=== PATIENT | male | born 1985 | race African-American/Black ===

== ENCOUNTER 2016-08-16 12:11 | Emergency (ER) | payer OTHER ==
[2016-08-16] MEDS ORDERED: KETOROLAC 30 MG/ML VIAL (J1885) As Ordered ONE (14:43)
[2016-08-16] MEDS ORDERED: CLINDAMYCIN 600 MG/50 ML PREMIX BAG As Ordered ONE (14:43)
[2016-08-16 15:12] LABS: ANION GAP 8 MEQ/L (8-16); BLOOD UREA NITROGEN 13 MG/DL (7-18); CALCIUM LEVEL 9.2 MG/DL (8.5-10.1); CARBON DIOXIDE LEVEL 30 MEQ/L (21-32); CHLORIDE LEVEL 104 MEQ/L (98-107); GLOMERULAR FILTRATION RATE > 60.0 (>60); GLUCOSE, FASTING 83 MG/DL (70-105); POTASSIUM SERUM 4.1 MEQ/L (3.5-5.1); SODIUM LEVEL 142 MEQ/L (136-145)
[2016-08-16] MEDS ORDERED: ISOVUE-370 76% 100ML VIAL (Q9967) As Ordered ONE ×2 (15:34→15:46)
[2016-08-16 15:36] LABS: ERYTHROCYTE SEDIMENTATION RATE 32 mm/hr (0-15)
[2016-08-16 15:37] LABS: BASO % 0.5 % (0.0-1.0); EOS # 0.1 K/mm3 (0.0-0.50); EOS % 1.2 % (0.0-3.0); LARGE UNSTAINED CELL # 0.2 K/mm3 (0.0-0.4); LARGE UNSTAINED CELL % 1.8 % (0.0-4.0); LYMPH # 1.4 K/mm3 (1.5-4.5); LYMPH % 17.5 % (24.0-44.0); MEAN CORPUSCULAR HEMOGLOBIN 34.7 pg (27.0-33.0); MEAN CORPUSCULAR HGB CONC 35.7 g/dl (32.0-36.5); MONO # 0.4 K/mm3 (0.0-0.8); MONO % 4.5 % (0.0-5.0); NEUTROPHILS % 74.5 % (36.0-66.0); PLATELET COUNT, AUTOMATED 232 k/mm3 (150-450); RED CELL DISTRIBUTION WIDTH 11.5 % (11.5-14.5)
--- NOTE | 2016-08-16 16:51 | REP ---
CT NECK WITH CONTRAST: HISTORY: Left facial swelling. CONTRAST: Isovue-370 75 mL. There is prominence of the adenoidal tissue with minimal mass effect on the nasopharynx. There is minimal enlargement of the tonsils. There is extension of the tonsillar enlargement into the lateral card of the oropharynx. There is minimal mass effect on the oropharynx. The hypopharynx, larynx, and subglottic trachea are normal in appearance. The salivary and thyroid glands are normal. An enlarged lymph node 1.7 cm in width is present in the left internal jugular chain at the level of the darcy and hypopharynx. Small lymph nodes less than 1 cm in size are present in the right internal jugular chain, posterior triangles, submandibular and submental areas. The lung apices are clear. The visualized sinuses are clear. IMPRESSION: There is minimal enlargement of the tonsils with minimal mass effect on the oropharynx. An enlarged lymph node 1.7 cm in width is present in the left internal jugular chain at the level or the darcy and hypopharynx. This is consistent with tonsillitis and lymphadenitis. Signed by Silvio Edwards MD 08/16/2016 04:58 P
[2016-08-16] MEDS ORDERED: CLINDAMYCIN 150 MG CAP As Ordered ONE (16:54)
--- NOTE | 2016-08-16 17:03 | EDDOCDS ---
Physician Documentation [facility] Name: Pablo Friedman Age: 30 yrs Sex: Male : 1985 Arrival Date: 08/16/2016 Time: 12:11 Bed I5 / M5 [facility] Disposition: 08/16/16 16:50 Discharged to Home/Self Care. Impression: Acute pharyngitis, Streptococcal pharyngitis. - Condition is Stable. - Discharge Instructions: Pharyngitis, Strep Throat. - Prescriptions for Clindamycin HCl 300 mg Oral Capsule - take 1 capsule by ORAL route every 6 hours; 40 capsule. - Medication Reconciliation, Local Pharmacy Hours form. - [facility]; When: Call to arrange an appointment; Reason: Recheck today's complaints, Continuance of care. - Problem is new. - Symptoms are unchanged. Historical: - Allergies: PENICILLINS; SULFA (SULFONAMIDES); - Home Meds: 1. none - PMHx: Asthma; - PSHx: Appendectomy; - Social history: Smoking status: Patient states was never smoker of tobacco. No barriers to communication noted, The patient speaks fluent Slovak, Speaks appropriately for age. - Family history: Not pertinent. - : The pt / caregiver states he / she is not on anticoagulants. Home medication list is obtained from the patient. - Exposure Risk Screening:: None identified. Vital Signs: 08/16 12:13 BP 166 / 86; Pulse 91; Resp 16; Temp 98.4(O); Pulse Ox 100% ; Weight 104.33 kg / 230.01 cmb lbs; Height 5 ft. 9 in. (175.26 cm); Pain 9/10; 15:39 Resp 18; Pain 4/10; ms18 16:53 BP 149 / 82; Pulse 72; Resp 18; Temp 97.6; Pulse Ox 99% ; Pain 4/10; jam1 12:13 Body Mass Index 33.96 (104.33 kg, 175.26 cm) cmb MDM: 14:13 Strep Screen, Nursing ordered. dt4 14:13 IV Saline Lock ordered. dt4 14:13 Clindamycin 600 mg IVPB once over 30 mins; dilute in 50mL of NS or D5W ordered. dt4 14:13 ketorolac 30 mg IVP once ordered. dt4 14:14 CBC with Diff Ordered. EDMS 14:14 Basic Metabolic Profile Ordered. EDMS 14:14 Sed Rate Ordered. EDMS 14:14 CRP Ordered. EDMS 14:15 CT Neck With Contrast Ordered. EDMS 14:54 ketorolac 30 mg IVP once ordered. srm 16:01 Financial registration complete. zo 16:07 [facility] Payment Agreement was scanned into [email or web address] and attached to record. zo 16:09 CBC with Diff Reviewed. mo1 16:10 Sed Rate Reviewed. mo1 16:10 CRP Reviewed. mo1 16:10 Basic Metabolic Profile Reviewed. mo1 16:49 Clindamycin 300 mg PO once ordered. mo1 Administered Medications: 14:53 Drug: ketorolac 30 mg [ketorolac 30 mg/mL (1 mL) injection solution (1 mL)] Route: IVP; srm Site: left antecubital; 15:39 Follow up: Resp 18 bpm; Pain 4/10 Adult; Response: No Adverse Reaction; Pain is ms18 decreased 14:55 Drug: Clindamycin 600 mg [clindamycin 600 mg/50 mL in 5 % dextrose intravenous srm piggyback] Route: IVPB; Infused Over: 30 mins; Site: left antecubital; 15:39 Follow up: Response: No Adverse Reaction; Pain is decreased; IV Status: Completed ms18 infusion 16:54 Not Given (Duplicate Order): Clindamycin 300 mg PO once mo1 Signatures: Dispatcher [employer] Christine Solis RN RN srm Samantha Hopson Michael, PA PA mo1 Marisel Cody RN RN ead Tschudi, Diane PAKiara PA-C dt4 Rosalina Wesley RN RN ms18 The chart was reviewed and I authenticate all verbal orders and agree with the evaluation and treatment provided.Attachments: 16:07 [facility] Payment Agreement zo MTDD
--- NOTE | 2016-08-16 17:03 | EDDOCDS ---
Nurse's Notes [facility] Name: Pablo Friedman Age: 30 yrs Sex: Male : 1985 Arrival Date: 08/16/2016 Time: 12:11 Bed I5 / M5 Private MD: [facility] KOCH Diagnosis: Acute pharyngitis;Streptococcal pharyngitis Presentation: 08/16 12:16 Presenting complaint: Patient states: Pt states he was seen at [facility] this morning for left jaw swelling, advised to come to ER. Pt reports onset of swelling was Monday. Pt reports pain when swallowing. Risk factors: Stridor is not present. Drooling is not present. Shortness of breath is not present. Cellulitis is not present. Adult Sepsis Screening: The patient does not have new or worsening altered mentation. Patient's respiratory rate is less than 22. Systolic blood pressure is greater than 100. Patient has a qSOFA score of 0- Negative Sepsis Screen. Mental Health Triage Level:. Suicide/Homicide risk assessment- the patient denies having any suicidal and/or homicidal ideations and does not present with any other emotional, behavioral or mental health complaints. 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 Transition of care: Patient was received from [facility]. 12:16 Acuity: RUPESH Level 3 ead 12:16 Method Of Arrival: Walkin/Carried/Asstd ead Triage Assessment: 12:18 General: Appears in no apparent distress, Behavior is appropriate for age, cooperative, ead pleasant. Pain: Location: left jaw Pain currently is 6 out of 10 on a pain scale. Neurological: No deficits noted. EENT: swelling to left jaw. Reports pain when swallowing. Derm: Skin is dry, Skin is normal. 12:19 Pt Declines HIV testing. ead Historical: - Allergies: PENICILLINS; SULFA (SULFONAMIDES); - Home Meds: 1. none - PMHx: Asthma; - PSHx: Appendectomy; - Social history: Smoking status: Patient states was never smoker of tobacco. No barriers to communication noted, The patient speaks fluent Cymro, Speaks appropriately for age. - Family history: Not pertinent. - : The pt / caregiver states he / she is not on anticoagulants. Home medication list is obtained from the patient. - Exposure Risk Screening:: None identified. Screenin:40 Screening information is obtained from the patient. Fall risk: No risks identified. ms18 Assistance ADL's: requires no assistance with activities of daily living. Abuse/DV Screen: The patient / caregiver reports he/she is: not in a situation that causes fear, pain or injury. Nutritional screening: No deficits noted. Advance Directives: There is no living will. home support is adequate. Assessment: 14:41 General: Appears in no apparent distress, Behavior is appropriate for age, cooperative. srm Neurological: No deficits noted. Respiratory: Airway is patent Respiratory effort is even, unlabored. GI: No deficits noted. Derm: swelling left jaw. 15:40 General: Appears in no apparent distress, comfortable, Behavior is appropriate for age, ms18 cooperative, pleasant. Pain: Location: mouth Pain currently is 4 out of 10 on a pain scale. Neurological: Level of Consciousness is awake, alert, obeys commands, Oriented to person, place, time. Respiratory: Airway is patent Respiratory effort is even, unlabored. Derm: Skin is normal. 16:59 General: Appears in no apparent distress, comfortable, Behavior is appropriate for age, ms18 cooperative, pleasant. Pain: Pain currently is 4 out of 10 on a pain scale. Neurological: No deficits noted. Respiratory: Airway is patent Respiratory effort is even, unlabored. Derm: Skin is pink, warm & dry. normal. 17:01 EENT: Throat is clear. ms18 Vital Signs: 12:13 BP 166 / 86; Pulse 91; Resp 16; Temp 98.4(O); Pulse Ox 100% ; Weight 104.33 kg; Height cmb 5 ft. 9 in. (175.26 cm); Pain 9/10; 15:39 Resp 18; Pain 4/10; ms18 16:53 BP 149 / 82; Pulse 72; Resp 18; Temp 97.6; Pulse Ox 99% ; Pain 4/10; jam1 12:13 Body Mass Index 33.96 (104.33 kg, 175.26 cm) cmb Vitals: 12:13 Log In Time: August 16, 2016 at 12:11. cmb 14:41 Strep Screen is obtained and tested: Positive. [facility] ED Course: 12:12 Patient visited by Carole Israel. cmb 12:12 [facility]. cmb 12:12 Patient moved to Waiting cmb 12:13 Patient moved to Pre RCE cmb 12:17 Triage Initiated ead 13:13 Patient moved to Triage 1 kr3 13:54 Lucinda Manning PA-C is PHCP. dt4 13:54 Manuela Stapleton MD is Attending Physician. dt4 13:54 Patient visited by Lucinda Manning PA-C. dt4 14:12 Patient moved to I5 / M5 mdr 14:41 CRP Sent. srm 14:41 Sed Rate Sent. srm 14:41 Basic Metabolic Profile Sent. srm 14:41 CBC with Diff Sent. srm 14:42 The patient / caregiver is instructed regarding the plan of care and ED course. Patient srm has correct armband on for positive identification. Placed in gown. Bed in low position. Call light in reach. 14:42 Inserted saline lock: 20 gauge in left antecubital area and blood collected. srm 14:55 Patient visited by Christine Ndiaye RN. srm 15:39 Patient visited by Rosalina Wesley RN. ms18 15:48 Patient has correct armband on for positive identification. Bed in low position. Call jam1 light in reach. Side rails up X 1. Door closed. 16:06 Patient name changed from Pablo\S\\S\Foward\S\ to Pablo\S\ \S\Foward. EDMS 16:07 PHCP role handed off by Lucinda Manning PA-C mo1 16:07 Jerardo Dixon PA is PHCP. mo1 16:07 [facility] Payment Agreement was scanned into [employer] and attached to record. zo 16:44 Patient visited by Rosalina Wesley RN. ms18 16:50 [facility]. mo1 16:59 Patient visited by Rosalina Wesley RN. ms18 16:59 Property :Personal belongings accompany Pt. ms18 16:59 Discontinued IV lock intact, bleeding controlled, pressure dressing applied, No ms18 redness/swelling at site. No procedures done that require assistance. Administered Medications: 14:53 Drug: ketorolac 30 mg [ketorolac 30 mg/mL (1 mL) injection solution (1 mL)] Route: IVP; srm Site: left antecubital; 15:39 Follow up: Resp 18 bpm; Pain 4/10 Adult; Response: No Adverse Reaction; Pain is ms18 decreased 14:55 Drug: Clindamycin 600 mg [clindamycin 600 mg/50 mL in 5 % dextrose intravenous srm piggyback] Route: IVPB; Infused Over: 30 mins; Site: left antecubital; 15:39 Follow up: Response: No Adverse Reaction; Pain is decreased; IV Status: Completed ms18 infusion 16:54 Not Given (Duplicate Order): Clindamycin 300 mg PO once mo1 Order Results: Lab Order: CBC with Diff; SPEC'M 08/16/16 14:37 Test: WHITE BLOOD COUNT; Value: 8.0; Range: 4.0-10.0; Units: K/mm3; Status: F Test: RED BLOOD COUNT; Value: 4.04; Range: 4.30-6.10; Abnormal: Below low normal; Units: M/mm3; Status: F Test: HEMOGLOBIN; Value: 14.0; Range: 14.0-18.0; Units: g/dl; Status: F Test: HEMATOCRIT; Value: 39.2; Range: 42.0-52.0; Abnormal: Below low normal; Units: %; Status: F Test: MEAN CORPUSCULAR VOLUME; Value: 97.0; Range: 80.0-96.0; Abnormal: Above high normal; Units: fl; Status: F Test: MEAN CORPUSCULAR HEMOGLOBIN; Value: 34.7; Range: 27.0-33.0; Abnormal: Above high normal; Units: pg; Status: F Test: MEAN CORPUSCULAR HGB CONC; Value: 35.7; Range: 32.0-36.5; Units: g/dl; Status: F Test: RED CELL DISTRIBUTION WIDTH; Value: 11.5; Range: 11.5-14.5; Units: %; Status: F Test: PLATELET COUNT, AUTOMATED; Value: 232; Range: 150-450; Units: k/mm3; Status: F Test: NEUTROPHILS %; Value: 74.5; Range: 36.0-66.0; Abnormal: Above high normal; Units: %; Status: F Test: LYMPH %; Value: 17.5; Range: 24.0-44.0; Abnormal: Below low normal; Units: %; Status: F Test: MONO %; Value: 4.5; Range: 0.0-5.0; Units: %; Status: F Test: EOS %; Value: 1.2; Range: 0.0-3.0; Units: %; Status: F Test: BASO %; Value: 0.5; Range: 0.0-1.0; Units: %; Status: F Test: LARGE UNSTAINED CELL %; Value: 1.8; Range: 0.0-4.0; Units: %; Status: F Test: NEUTROPHILS #; Value: 6.0; Range: 1.8-7.7; Units: K/mm3; Status: F Test: LYMPH #; Value: 1.4; Range: 1.5-4.5; Abnormal: Below low normal; Units: K/mm3; Status: F Test: MONO #; Value: 0.4; Range: 0.0-0.8; Units: K/mm3; Status: F Test: EOS #; Value: 0.1; Range: 0.0-0.50; Units: K/mm3; Status: F Test: BASO #; Value: 0.0; Range: 0.0-0.2; Units: K/mm3; Status: F Test: LARGE UNSTAINED CELL #; Value: 0.2; Range: 0.0-0.4; Units: K/mm3; Status: F Lab Order: Basic Metabolic Profile; SPEC'M 08/16/16 14:37 Test: GLUCOSE, FASTING; Value: 83; Range: 70-105; Units: MG/DL; Status: F Test: BLOOD UREA NITROGEN; Value: 13; Range: 7-18; Units: MG/DL; Status: F Test: CREATININE FOR GFR; Value: 1.20; Range: 0.70-1.30; Units: MG/DL; Status: F Test: GLOMERULAR FILTRATION RATE; Value: > 60.0; Range: >60; Status: F Test: SODIUM LEVEL; Value: 142; Range: 136-145; Units: MEQ/L; Status: F Test: POTASSIUM SERUM; Value: 4.1; Range: 3.5-5.1; Units: MEQ/L; Status: F Test: CHLORIDE LEVEL; Value: 104; Range: 98-107; Units: MEQ/L; Status: F Test: CARBON DIOXIDE LEVEL; Value: 30; Range: 21-32; Units: MEQ/L; Status: F Test: ANION GAP; Value: 8; Range: 8-16; Units: MEQ/L; Status: F Test: CALCIUM LEVEL; Value: 9.2; Range: 8.5-10.1; Units: MG/DL; Status: F Test Note: ; Units are mL/min/1.73 m2 Chronic Kidney Disease Staging per NKF: Stage I & II GFR >=60 Normal to Mildly Decreased Stage III GFR 30-59 Moderately Decreased Stage IV GFR 15-29 Severely Decreased Stage V GFR <15 Very Little GFR Left ESRD GFR <15 on CREDIT RISK MANAGER Lab Order: Sed Rate; SPEC'M 08/16/16 14:37 Test: ERYTHROCYTE SEDIMENTATION RATE; Value: 32; Range: 0-15; Abnormal: Above high normal; Units: mm/hr; Status: F Lab Order: CRP; SPEC'M 08/16/16 14:37 Test: C REACTIVE PROTEIN QUANTITATIV; Value: 3.30; Range: 0.00-0.30; Abnormal: Above high normal; Units: MG/DL; Status: F Outcome: 16:50 Discharge ordered by Provider. mo1 16:59 Discharge Assessment: Patient awake, alert and oriented x 3. No cognitive and/or ms18 functional deficits noted. Patient verbalized understanding of disposition instructions. patient administered narcotics - no. The following High Risk Discharge criteria are identified: None. Discharged to home ambulatory. Condition: good Condition: stable Condition: improved. Discharge instructions given to patient, Instructed on discharge instructions, follow up and referral plans. medication usage, Demonstrated understanding of instructions, medications, Patient was not receptive of discharge instructions. Prescriptions given X 1. CT Study completed. 17:02 Patient left the ED. ms18 Signatures: Dispatcher [employer] EDMS Christine Ndiaye RN Yohana Vera, CLINICAL MASSAGE THERAPIST CLINICAL MASSAGE THERAPIST jam1 Leonor Marr RN RN kr3 Samantha Hopson [place] cmb O'Hagan, Michael, PA PA mo1 Marisel Cody RN RN ead Tschudi, Diane PA-C PA-C dt4 Rosalina Wesley RN RN ms18 Devin, Asad, CLINICAL MASSAGE THERAPIST CLINICAL MASSAGE THERAPIST mdr Corrections: (The following items were deleted from the chart) 14:54 14:54 ketorolac 30 mg IVP in left antecubital srm srm 17:01 16:59 Pain: Denies pain. ms18 ms18 MTDD
--- NOTE | 2016-08-18 18:03 | EDDOCDS ---
Physician Documentation [facility] Name: Pablo Friedman Age: 30 yrs Sex: Male : 1985 Arrival Date: 08/16/2016 Time: 12:11 Bed I5 / M5 [facility] Disposition: 08/16/16 16:50 Discharged to Home/Self Care. Impression: Acute pharyngitis, Streptococcal pharyngitis. - Condition is Stable. - Discharge Instructions: Pharyngitis, Strep Throat. - Prescriptions for Clindamycin HCl 300 mg Oral Capsule - take 1 capsule by ORAL route every 6 hours; 40 capsule. - Medication Reconciliation, Local Pharmacy Hours form. - [facility]; When: Call to arrange an appointment; Reason: Recheck today's complaints, Continuance of care. - Problem is new. - Symptoms are unchanged. Historical: - Allergies: PENICILLINS; SULFA (SULFONAMIDES); - Home Meds: 1. none - PMHx: Asthma; - PSHx: Appendectomy; - Social history: Smoking status: Patient states was never smoker of tobacco. No barriers to communication noted, The patient speaks fluent Indonesian, Speaks appropriately for age. - Family history: Not pertinent. - : The pt / caregiver states he / she is not on anticoagulants. Home medication list is obtained from the patient. - Exposure Risk Screening:: None identified. Vital Signs: 08/16 12:13 BP 166 / 86; Pulse 91; Resp 16; Temp 98.4(O); Pulse Ox 100% ; Weight 104.33 kg / 230.01 cmb lbs; Height 5 ft. 9 in. (175.26 cm); Pain 9/10; 15:39 Resp 18; Pain 4/10; ms18 16:53 BP 149 / 82; Pulse 72; Resp 18; Temp 97.6; Pulse Ox 99% ; Pain 4/10; jam1 12:13 Body Mass Index 33.96 (104.33 kg, 175.26 cm) cmb MDM: 14:13 Strep Screen, Nursing ordered. dt4 14:13 IV Saline Lock ordered. dt4 14:13 Clindamycin 600 mg IVPB once over 30 mins; dilute in 50mL of NS or D5W ordered. dt4 14:13 ketorolac 30 mg IVP once ordered. dt4 14:14 CBC with Diff Ordered. EDMS 14:14 Basic Metabolic Profile Ordered. EDMS 14:14 Sed Rate Ordered. EDMS 14:14 CRP Ordered. EDMS 14:15 CT Neck With Contrast Ordered. EDMS 14:54 ketorolac 30 mg IVP once ordered. srm 16:01 Financial registration complete. zo 16:07 [facility] Payment Agreement was scanned into [employer] and attached to record. zo 16:09 CBC with Diff Reviewed. mo1 16:10 Sed Rate Reviewed. mo1 16:10 CRP Reviewed. mo1 16:10 Basic Metabolic Profile Reviewed. mo1 16:49 Clindamycin 300 mg PO once ordered. mo1 08/17 03:23 T-Sheet-- Draft Copy was scanned into [employer] and attached to record. hs2 Administered Medications: 08/16 14:53 Drug: ketorolac 30 mg [ketorolac 30 mg/mL (1 mL) injection solution (1 mL)] Route: IVP; srm Site: left antecubital; 15:39 Follow up: Resp 18 bpm; Pain 4/10 Adult; Response: No Adverse Reaction; Pain is ms18 decreased 14:55 Drug: Clindamycin 600 mg [clindamycin 600 mg/50 mL in 5 % dextrose intravenous srm piggyback] Route: IVPB; Infused Over: 30 mins; Site: left antecubital; 15:39 Follow up: Response: No Adverse Reaction; Pain is decreased; IV Status: Completed ms18 infusion 16:54 Not Given (Duplicate Order): Clindamycin 300 mg PO once mo1 Signatures: Dispatcher [employer] EDChristine Jenkins RN RN srm Samantha Hopson Michael, PA PA mo1 Marisel Cody RN RN ead Tschudi, Diane, PA-C PA-C dt4 Rosalina Wesley RN RN ms18 Ritika George, Reg Reg hs2 The chart was reviewed and I authenticate all verbal orders and agree with the evaluation and treatment provided.Attachments: 16:07 [facility] Payment Agreement zo 08/17 03:23 T-Sheet-- Draft Copy hs2 Chart Complete MTDD
--- NOTE | 2016-08-18 18:03 | EDDOCDS ---
Physician Documentation [facility] Name: Pablo Friedman Age: 30 yrs Sex: Male : 1985 Arrival Date: 08/16/2016 Time: 12:11 Bed I5 / M5 [facility] Disposition: 08/16/16 16:50 Discharged to Home/Self Care. Impression: Acute pharyngitis, Streptococcal pharyngitis. - Condition is Stable. - Discharge Instructions: Pharyngitis, Strep Throat. - Prescriptions for Clindamycin HCl 300 mg Oral Capsule - take 1 capsule by ORAL route every 6 hours; 40 capsule. - Medication Reconciliation, Local Pharmacy Hours form. - [facility]; When: Call to arrange an appointment; Reason: Recheck today's complaints, Continuance of care. - Problem is new. - Symptoms are unchanged. Historical: - Allergies: PENICILLINS; SULFA (SULFONAMIDES); - Home Meds: 1. none - PMHx: Asthma; - PSHx: Appendectomy; - Social history: Smoking status: Patient states was never smoker of tobacco. No barriers to communication noted, The patient speaks fluent Telugu, Speaks appropriately for age. - Family history: Not pertinent. - : The pt / caregiver states he / she is not on anticoagulants. Home medication list is obtained from the patient. - Exposure Risk Screening:: None identified. Vital Signs: 08/16 12:13 BP 166 / 86; Pulse 91; Resp 16; Temp 98.4(O); Pulse Ox 100% ; Weight 104.33 kg / 230.01 cmb lbs; Height 5 ft. 9 in. (175.26 cm); Pain 9/10; 15:39 Resp 18; Pain 4/10; ms18 16:53 BP 149 / 82; Pulse 72; Resp 18; Temp 97.6; Pulse Ox 99% ; Pain 4/10; jam1 12:13 Body Mass Index 33.96 (104.33 kg, 175.26 cm) cmb MDM: 14:13 Strep Screen, Nursing ordered. dt4 14:13 IV Saline Lock ordered. dt4 14:13 Clindamycin 600 mg IVPB once over 30 mins; dilute in 50mL of NS or D5W ordered. dt4 14:13 ketorolac 30 mg IVP once ordered. dt4 14:14 CBC with Diff Ordered. EDMS 14:14 Basic Metabolic Profile Ordered. EDMS 14:14 Sed Rate Ordered. EDMS 14:14 CRP Ordered. EDMS 14:15 CT Neck With Contrast Ordered. EDMS 14:54 ketorolac 30 mg IVP once ordered. srm 16:01 Financial registration complete. zo 16:07 [facility] Payment Agreement was scanned into [employer] and attached to record. zo 16:09 CBC with Diff Reviewed. mo1 16:10 Sed Rate Reviewed. mo1 16:10 CRP Reviewed. mo1 16:10 Basic Metabolic Profile Reviewed. mo1 16:49 Clindamycin 300 mg PO once ordered. mo1 08/17 03:23 T-Sheet-- Draft Copy was scanned into [employer] and attached to record. hs2 Administered Medications: 08/16 14:53 Drug: ketorolac 30 mg [ketorolac 30 mg/mL (1 mL) injection solution (1 mL)] Route: IVP; srm Site: left antecubital; 15:39 Follow up: Resp 18 bpm; Pain 4/10 Adult; Response: No Adverse Reaction; Pain is ms18 decreased 14:55 Drug: Clindamycin 600 mg [clindamycin 600 mg/50 mL in 5 % dextrose intravenous srm piggyback] Route: IVPB; Infused Over: 30 mins; Site: left antecubital; 15:39 Follow up: Response: No Adverse Reaction; Pain is decreased; IV Status: Completed ms18 infusion 16:54 Not Given (Duplicate Order): Clindamycin 300 mg PO once mo1 Signatures: Dispatcher [employer] EDChristine Jenkins RN RN srm Samantha Hopson Michael, PA PA mo1 Marisel Cody RN RN ead Tschudi, Diane, PA-C PA-C dt4 Rosalina Wesley RN RN ms18 Ritika George, Reg Reg hs2 The chart was reviewed and I authenticate all verbal orders and agree with the evaluation and treatment provided.Attachments: 16:07 [facility] Payment Agreement zo 08/17 03:23 T-Sheet-- Draft Copy hs2 Chart Complete MTDD
--- NOTE | 2016-08-18 18:03 | EDDOCDS ---
Nurse's Notes [facility] Name: Pablo Friedman Age: 30 yrs Sex: Male : 1985 Arrival Date: 08/16/2016 Time: 12:11 Bed I5 / M5 Private MD: SCFREYA KOCH Diagnosis: Acute pharyngitis;Streptococcal pharyngitis Presentation: 08/16 12:16 Presenting complaint: Patient states: Pt states he was seen at [facility] this morning for left jaw swelling, advised to come to ER. Pt reports onset of swelling was Monday. Pt reports pain when swallowing. Risk factors: Stridor is not present. Drooling is not present. Shortness of breath is not present. Cellulitis is not present. Adult Sepsis Screening: The patient does not have new or worsening altered mentation. Patient's respiratory rate is less than 22. Systolic blood pressure is greater than 100. Patient has a qSOFA score of 0- Negative Sepsis Screen. Mental Health Triage Level:. Suicide/Homicide risk assessment- the patient denies having any suicidal and/or homicidal ideations and does not present with any other emotional, behavioral or mental health complaints. 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 Transition of care: Patient was received from [facility]. 12:16 Acuity: RUPESH Level 3 ead 12:16 Method Of Arrival: Walkin/Carried/Asstd ead Triage Assessment: 12:18 General: Appears in no apparent distress, Behavior is appropriate for age, cooperative, ead pleasant. Pain: Location: left jaw Pain currently is 6 out of 10 on a pain scale. Neurological: No deficits noted. EENT: swelling to left jaw. Reports pain when swallowing. Derm: Skin is dry, Skin is normal. 12:19 Pt Declines HIV testing. ead Historical: - Allergies: PENICILLINS; SULFA (SULFONAMIDES); - Home Meds: 1. none - PMHx: Asthma; - PSHx: Appendectomy; - Social history: Smoking status: Patient states was never smoker of tobacco. No barriers to communication noted, The patient speaks fluent Dominican, Speaks appropriately for age. - Family history: Not pertinent. - : The pt / caregiver states he / she is not on anticoagulants. Home medication list is obtained from the patient. - Exposure Risk Screening:: None identified. Screenin:40 Screening information is obtained from the patient. Fall risk: No risks identified. ms18 Assistance ADL's: requires no assistance with activities of daily living. Abuse/DV Screen: The patient / caregiver reports he/she is: not in a situation that causes fear, pain or injury. Nutritional screening: No deficits noted. Advance Directives: There is no living will. home support is adequate. Assessment: 14:41 General: Appears in no apparent distress, Behavior is appropriate for age, cooperative. srm Neurological: No deficits noted. Respiratory: Airway is patent Respiratory effort is even, unlabored. GI: No deficits noted. Derm: swelling left jaw. 15:40 General: Appears in no apparent distress, comfortable, Behavior is appropriate for age, ms18 cooperative, pleasant. Pain: Location: mouth Pain currently is 4 out of 10 on a pain scale. Neurological: Level of Consciousness is awake, alert, obeys commands, Oriented to person, place, time. Respiratory: Airway is patent Respiratory effort is even, unlabored. Derm: Skin is normal. 16:59 General: Appears in no apparent distress, comfortable, Behavior is appropriate for age, ms18 cooperative, pleasant. Pain: Pain currently is 4 out of 10 on a pain scale. Neurological: No deficits noted. Respiratory: Airway is patent Respiratory effort is even, unlabored. Derm: Skin is pink, warm & dry. normal. 17:01 EENT: Throat is clear. ms18 Vital Signs: 12:13 BP 166 / 86; Pulse 91; Resp 16; Temp 98.4(O); Pulse Ox 100% ; Weight 104.33 kg; Height cmb 5 ft. 9 in. (175.26 cm); Pain 9/10; 15:39 Resp 18; Pain 4/10; ms18 16:53 BP 149 / 82; Pulse 72; Resp 18; Temp 97.6; Pulse Ox 99% ; Pain 4/10; jam1 12:13 Body Mass Index 33.96 (104.33 kg, 175.26 cm) cmb Vitals: 12:13 Log In Time: August 16, 2016 at 12:11. cmb 14:41 Strep Screen is obtained and tested: Positive. [facility] ED Course: 12:12 Patient visited by Carole Israel. cmb 12:12 [facility] cmb 12:12 Patient moved to Waiting cmb 12:13 Patient moved to Pre RCE cmb 12:17 Triage Initiated ead 13:13 Patient moved to Triage 1 kr3 13:54 Lucinda Manning PA-C is PHCP. dt4 13:54 Manuela Stapleton MD is Attending Physician. dt4 13:54 Patient visited by Lucinda Manning PA-C. dt4 14:12 Patient moved to I5 / M5 mdr 14:41 CRP Sent. srm 14:41 Sed Rate Sent. srm 14:41 Basic Metabolic Profile Sent. srm 14:41 CBC with Diff Sent. srm 14:42 The patient / caregiver is instructed regarding the plan of care and ED course. Patient srm has correct armband on for positive identification. Placed in gown. Bed in low position. Call light in reach. 14:42 Inserted saline lock: 20 gauge in left antecubital area and blood collected. srm 14:55 Patient visited by Christine Ndiaye RN. srm 15:39 Patient visited by Rosalina Wesley RN. ms18 15:48 Patient has correct armband on for positive identification. Bed in low position. Call jam1 light in reach. Side rails up X 1. Door closed. 16:06 Patient name changed from Pablo\S\\S\Foward\S\ to Pablo\S\ \S\Foward. EDMS 16:07 PHCP role handed off by Lucinda Manning PA-C mo1 16:07 Jerardo Dixon PA is PHCP. mo1 16:07 [facility] Payment Agreement was scanned into [employer] and attached to record. zo 16:44 Patient visited by Rosalina Wesley RN. ms18 16:50 [facility] is Referral Physician. mo1 16:59 Patient visited by Rosalina Wesley RN. ms18 16:59 Property :Personal belongings accompany Pt. ms18 16:59 Discontinued IV lock intact, bleeding controlled, pressure dressing applied, No ms18 redness/swelling at site. No procedures done that require assistance. 17:36 CT Neck With Contrast Returned. EDMS 08/17 03:23 T-Sheet-- Draft Copy was scanned into [employer] and attached to record. hs2 Administered Medications: 08/16 14:53 Drug: ketorolac 30 mg [ketorolac 30 mg/mL (1 mL) injection solution (1 mL)] Route: IVP; srm Site: left antecubital; 15:39 Follow up: Resp 18 bpm; Pain 4/10 Adult; Response: No Adverse Reaction; Pain is ms18 decreased 14:55 Drug: Clindamycin 600 mg [clindamycin 600 mg/50 mL in 5 % dextrose intravenous srm piggyback] Route: IVPB; Infused Over: 30 mins; Site: left antecubital; 15:39 Follow up: Response: No Adverse Reaction; Pain is decreased; IV Status: Completed ms18 infusion 16:54 Not Given (Duplicate Order): Clindamycin 300 mg PO once mo1 Order Results: Lab Order: CBC with Diff; SPEC'M 08/16/16 14:37 Test: WHITE BLOOD COUNT; Value: 8.0; Range: 4.0-10.0; Units: K/mm3; Status: F Test: RED BLOOD COUNT; Value: 4.04; Range: 4.30-6.10; Abnormal: Below low normal; Units: M/mm3; Status: F Test: HEMOGLOBIN; Value: 14.0; Range: 14.0-18.0; Units: g/dl; Status: F Test: HEMATOCRIT; Value: 39.2; Range: 42.0-52.0; Abnormal: Below low normal; Units: %; Status: F Test: MEAN CORPUSCULAR VOLUME; Value: 97.0; Range: 80.0-96.0; Abnormal: Above high normal; Units: fl; Status: F Test: MEAN CORPUSCULAR HEMOGLOBIN; Value: 34.7; Range: 27.0-33.0; Abnormal: Above high normal; Units: pg; Status: F Test: MEAN CORPUSCULAR HGB CONC; Value: 35.7; Range: 32.0-36.5; Units: g/dl; Status: F Test: RED CELL DISTRIBUTION WIDTH; Value: 11.5; Range: 11.5-14.5; Units: %; Status: F Test: PLATELET COUNT, AUTOMATED; Value: 232; Range: 150-450; Units: k/mm3; Status: F Test: NEUTROPHILS %; Value: 74.5; Range: 36.0-66.0; Abnormal: Above high normal; Units: %; Status: F Test: LYMPH %; Value: 17.5; Range: 24.0-44.0; Abnormal: Below low normal; Units: %; Status: F Test: MONO %; Value: 4.5; Range: 0.0-5.0; Units: %; Status: F Test: EOS %; Value: 1.2; Range: 0.0-3.0; Units: %; Status: F Test: BASO %; Value: 0.5; Range: 0.0-1.0; Units: %; Status: F Test: LARGE UNSTAINED CELL %; Value: 1.8; Range: 0.0-4.0; Units: %; Status: F Test: NEUTROPHILS #; Value: 6.0; Range: 1.8-7.7; Units: K/mm3; Status: F Test: LYMPH #; Value: 1.4; Range: 1.5-4.5; Abnormal: Below low normal; Units: K/mm3; Status: F Test: MONO #; Value: 0.4; Range: 0.0-0.8; Units: K/mm3; Status: F Test: EOS #; Value: 0.1; Range: 0.0-0.50; Units: K/mm3; Status: F Test: BASO #; Value: 0.0; Range: 0.0-0.2; Units: K/mm3; Status: F Test: LARGE UNSTAINED CELL #; Value: 0.2; Range: 0.0-0.4; Units: K/mm3; Status: F Lab Order: Basic Metabolic Profile; [facility] 08/16/16 14:37 Test: GLUCOSE, FASTING; Value: 83; Range: 70-105; Units: MG/DL; Status: F Test: BLOOD UREA NITROGEN; Value: 13; Range: 7-18; Units: MG/DL; Status: F Test: CREATININE FOR GFR; Value: 1.20; Range: 0.70-1.30; Units: MG/DL; Status: F Test: GLOMERULAR FILTRATION RATE; Value: > 60.0; Range: >60; Status: F Test: SODIUM LEVEL; Value: 142; Range: 136-145; Units: MEQ/L; Status: F Test: POTASSIUM SERUM; Value: 4.1; Range: 3.5-5.1; Units: MEQ/L; Status: F Test: CHLORIDE LEVEL; Value: 104; Range: 98-107; Units: MEQ/L; Status: F Test: CARBON DIOXIDE LEVEL; Value: 30; Range: 21-32; Units: MEQ/L; Status: F Test: ANION GAP; Value: 8; Range: 8-16; Units: MEQ/L; Status: F Test: CALCIUM LEVEL; Value: 9.2; Range: 8.5-10.1; Units: MG/DL; Status: F Test Note: ; Units are mL/min/1.73 m2 Chronic Kidney Disease Staging per NKF: Stage I & II GFR >=60 Normal to Mildly Decreased Stage III GFR 30-59 Moderately Decreased Stage IV GFR 15-29 Severely Decreased Stage V GFR <15 Very Little GFR Left ESRD GFR <15 on SOFTWARE BUSINESS ANALYST Lab Order: Sed Rate; SPEC'M 08/16/16 14:37 Test: ERYTHROCYTE SEDIMENTATION RATE; Value: 32; Range: 0-15; Abnormal: Above high normal; Units: mm/hr; Status: F Lab Order: CRP; SPEC'M 08/16/16 14:37 Test: C REACTIVE PROTEIN QUANTITATIV; Value: 3.30; Range: 0.00-0.30; Abnormal: Above high normal; Units: MG/DL; Status: F Radiology Order: CT Neck With Contrast Test: CT Neck With Contrast REASON FOR EXAMINATION: LEFT SIDED FACIAL/NECK SWELLING, ?ABSCESS; CT NECK WITH CONTRAST:; ; HISTORY: Left facial swelling.; ; CONTRAST: Isovue-370 75 mL.; ; ; ; There is prominence of the adenoidal tissue with minimal mass effect on the; nasopharynx. There is minimal enlargement of the tonsils. There is extension of; the tonsillar enlargement into the lateral card of the oropharynx. There is; minimal mass effect on the oropharynx. The hypopharynx, larynx, and subglottic; trachea are normal in appearance. The salivary and thyroid glands are normal. An; enlarged lymph node 1.7 cm in width is present in the left internal jugular; chain at the level of the darcy and hypopharynx. Small lymph nodes less than; 1 cm in size are present in the right internal jugular chain, posterior; triangles, submandibular and submental areas. The lung apices are clear. The; visualized sinuses are clear.; ; IMPRESSION:; ; There is minimal enlargement of the tonsils with minimal mass effect on the; oropharynx. An enlarged lymph node 1.7 cm in width is present in the left; internal jugular chain at the level or the darcy and hypopharynx. This is; consistent with tonsillitis and lymphadenitis.; ; ; Signed by; Silvio Edwards MD 08/16/2016 04:58 P; Outcome: 16:50 Discharge ordered by Provider. mo1 16:59 Discharge Assessment: Patient awake, alert and oriented x 3. No cognitive and/or ms18 functional deficits noted. Patient verbalized understanding of disposition instructions. patient administered narcotics - no. The following High Risk Discharge criteria are identified: None. Discharged to home ambulatory. Condition: good Condition: stable Condition: improved. Discharge instructions given to patient, Instructed on discharge instructions, follow up and referral plans. medication usage, Demonstrated understanding of instructions, medications, Patient was not receptive of discharge instructions. Prescriptions given X 1. CT Study completed. 17:02 Patient left the ED. ms18 Signatures: Dispatcher [employer] EDMS Christine Ndiaye, RN RN srm Yohana Daniels, REGISTERED VASCULAR TECHNOLOGIST (RVT) REGISTERED VASCULAR TECHNOLOGIST (RVT) jam1 Leonor Marr RN RN kr3 Samantha Hopson [place] cmb O'Hagan, Michael, PA PA mo1 Marisel Cody,Lucinda Lord RN, PA-C PA-C dt4 Rosalina Wesley RN RN ms18 Asad Beltran, REGISTERED VASCULAR TECHNOLOGIST (RVT) REGISTERED VASCULAR TECHNOLOGIST (RVT) mdr Ritika George, Reg Reg hs2 Corrections: (The following items were deleted from the chart) 14:54 14:54 ketorolac 30 mg IVP in left antecubital srm srm 17:01 16:59 Pain: Denies pain. ms18 ms18 Chart Complete MTDD
== END 2016-08-16 17:02 | disposition home or self-care (01) ==
LOC: M ED 12:11
DX: J02.0 Streptococcal pharyngitis (principal); J45.909 Unspecified asthma, uncomplicated; Z88.0 Allergy status to penicillin; Z88.2 Allergy status to sulfonamides
CPT/HCPCS: 36415; 70491; 80048; 85025; 85652; 86140; 87880; 96365; 96375; 99284; J1885; Q9967

== ENCOUNTER 2017-01-17 07:42 | Emergency (ER) | payer OTHER ==
[~2017-01-17] VITALS: Ht 172.7 cm; Wt 101.4 kg
[2017-01-17] MEDS ORDERED: NS 1,000 ML IV ONE (08:15)
[2017-01-17] MEDS ORDERED: diphenhydrAMINE INJ 50MG/ML VIAL (J1200) IV ONE (08:15)
[2017-01-17] MEDS ORDERED: METOCLOPRAMIDE INJ 10MG/2ML VIAL (J2765) IV ONE (08:15)
--- NOTE | 2017-01-17 09:34 | REP ---
Clinical: Headache and vomiting with recent trauma . Comparison: None . Findings: The ventricles, sulci, and cisterns are normal in position and appearance. Kidd-white differentiation is maintained. No acute intracranial hemorrhage, mass/mass effect, pathology or trauma/injury. No evidence for acute infarction. No extra-axial fluid collection. Calvarium is intact. Paranasal sinuses and mastoid air cells are clear. Impression: Normal noncontrast head CT. No evidence for acute intracranial pathology or trauma/injury. Signed by Herman Mckeon MD 01/17/2017 09:26 A
[2017-01-17] MEDS ORDERED: ZOFR4TAB3 PO (10:26)
[2017-01-17 10:34] VITALS: BP 133/65
== END 2017-01-17 10:35 | disposition home or self-care (01) ==
LOC: M ED 08:35
DX: S06.0X0A Concussion without loss of consciousness, initial encounter (principal); V40.5XXA Car driver injured in collision with pedestrian or animal in traffic accident, initial encounter; Y92.410 Unspecified street and highway as the place of occurrence of the external cause; Y93.89 Activity, other specified; Y99.9 Unspecified external cause status
CPT/HCPCS: 70450; 96361; 96374; 96375; 99283; J1200; J2765